=== PATIENT | male | born 1950 | race Caucasian/White ===

== ENCOUNTER 2021-10-26 00:07 | Emergency (ER) | payer OTHER, MEDICARE ==
[2021-10-26 00:17] VITALS: BP 133/71; PULSE 74; TEMP 99.3; BMI 25.8
[2021-10-26] MEDS ORDERED: DIPHTH,PERTUSS(ACELL),TET 0.5 ML DISP.SYRIN IM ONE ×2 (00:38→00:40)
== END 2021-10-26 01:54 | disposition home or self-care (01) ==
LOC: FER 00:07
PROC: 0HQLXZZ Repair Left Lower Leg Skin, External Approach (ICD-10-PCS; principal; 2021-10-26)
PROC: 3E0234Z Introduction of Serum, Toxoid and Vaccine into Muscle, Percutaneous Approach (ICD-10-PCS; 2021-10-26)
DX: S81.812A Laceration without foreign body, left lower leg, initial encounter (principal); S00.83XA Contusion of other part of head, initial encounter; S01.81XA Laceration without foreign body of other part of head, initial encounter; S40.012A Contusion of left shoulder, initial encounter; W01.0XXA Fall on same level from slipping, tripping and stumbling without subsequent striking against object, initial encounter
CPT/HCPCS: 12001-25; 70450-TC; 90471; 90715; 99284-25